=== PATIENT | male | born 1995 | race Caucasian/White ===

== ENCOUNTER 2018-08-24 13:52 | Emergency (ER) | payer BC ==
[2018-08-24] MEDS: Sodium Chloride 0.9% 1,000 ML IV ONE (14:24)
[2018-08-24 14:57] LABS: ANION GAP 15.6 mmol/L (5-15); CHLORIDE,CL 103 mmol/L (98-115); SODIUM,NA 139 mmol/L (136-145)
--- NOTE | 2018-08-24 15:11 | EDM.PDOC ---
ED HPI GENERAL MEDICAL PROBLEM - General Chief Complaint: General Stated Complaint: FEVER, ACHY Time Seen by Provider: 08/24/18 14:20 Source of Information: Reports: Patient History Limitations: Reports: No Limitations - History of Present Illness INITIAL COMMENTS - FREE TEXT/NARRATIVE: Patient is a 22-year-old gentleman who presents to the emergency department this afternoon with a complaint of fever and body aches. Patient states that this morning he felt fine, however at work felt feverish, had some body aches and while at the standing position, felt like he was lightheaded. Episode resolved spontaneously, but patient felt weak after. He reported to the [employer] nurse who sent him home. While he was home, he had one episode of diarrhea, and also felt lightheaded upon standing. Patient denies chest pain, shortness of breath, abdominal pain, nausea, vomiting, blood in stool, out of country travel, or any sick contacts. Onset: Today Duration: Hour(s): Quality: Reports: Ache Severity: Mild Improves with: Reports: None Worsens with: Reports: None Associated Symptoms: Reports: Cough, Malaise. Denies: Chest Pain, Fever/Chills , Shortness of Breath body aches Pain Score (Numeric/FACES): 5 - Related Data Allergies Allergy/AdvReac Type Severity Reaction Status Date / Time No Known Drug Allergies Allergy Cannot Verified 08/24/18 14:23 Remember Home Meds: Home Meds Budesonide [Rhinocort Allergy] 1 spray NASBOTH DAILY PRN 08/30/16 [History] Cetirizine HCl [Zyrtec] 10 mg PO BEDTIME 08/30/16 [History] Escitalopram [Lexapro] 20 mg PO DAILY 08/30/16 [History] Past Medical History - Past Health History Medical/Surgical History: Denies Medical/Surgical History HEENT History: Reports: Impaired Vision, Other (See Below) Other HEENT History: deviated septum Cardiovascular History: Reports: Other (See Below) Other Cardiovascular History: sleep apnea Respiratory History: Reports: Asthma, Sleep Apnea Gastrointestinal History: Reports: Cholelithiasis Psychiatric History: Reports: Depression Social & Family History - Family History Cardiac: Reports: Hypertension - Caffeine Use Caffeine Use: Reports: Soda - Living Situation & Occupation Living situation: Reports: Occupation: Employed ED ROS GENERAL - Review of Systems Review Of Systems: ROS reveals no pertinent complaints other than HPI. Constitutional: Reports: Malaise HEENT: Reports: No Symptoms Respiratory: Reports: Cough Cardiovascular: Reports: No Symptoms Endocrine: Reports: No Symptoms GI/Abdominal: Reports: Diarrhea. Denies: Abdominal Pain, Black Stool, Bloody Stool : Reports: No Symptoms Musculoskeletal: Reports: No Symptoms Skin: Reports: No Symptoms Neurological: Reports: No Symptoms Psychiatric: Reports: No Symptoms Hematologic/Lymphatic: Reports: No Symptoms Immunologic: Reports: No Symptoms ED EXAM, GENERAL - Physical Exam Exam: See Below Exam Limited By: No Limitations General Appearance: Alert, WD/WN, No Apparent Distress Eye Exam: Bilateral Eye: Normal Inspection Nose: Normal Inspection, Normal Mucosa, No Blood Throat/Mouth: Normal Inspection, Normal Oropharynx, No Airway Compromise Head: Atraumatic, Normocephalic Neck: Normal Inspection, Supple, Non-Tender Respiratory/Chest: No Respiratory Distress, Lungs Clear, Normal Breath Sounds, No Accessory Muscle Use, Chest Non-Tender Cardiovascular: Normal Peripheral Pulses, Regular Rate, Rhythm, No Murmur GI/Abdominal: Normal Bowel Sounds, Soft, Non-Tender, No Organomegaly, No Distention, No Abnormal Bruit, No Mass Back Exam: Normal Inspection. No: CVA Tenderness (L), CVA Tenderness (R) Extremities: Normal Inspection, No Pedal Edema Neurological: Alert, Oriented, CN II-XII Intact, Normal Cognition, No Motor/ Sensory Deficits Psychiatric: Normal Affect, Normal Mood Skin Exam: Warm, Dry, Intact, Normal Color, No Rash Lymphatic: No Adenopathy Course - Vital Signs Last Recorded V/S: Last Vital Signs Temp 96.7 F 08/24/18 14:03 Pulse 79 08/24/18 14:03 Resp 14 08/24/18 14:03 BP 121/63 08/24/18 14:03 Pulse Ox 97 08/24/18 14:03 - Orders/Labs/Meds Labs: Laboratory Tests 08/24/18 08/24/18 Range/Units 14:15 14:15 WBC 9.93 (5.00-10.00) 10^3/uL RBC 4.99 (4.50-6.00) 10^6/uL Hgb 14.5 (13.0-17.0) g/dL Hct 42.4 (40.0-52.0) % MCV 85.0 (82.0-92.0) fL MCH 29.1 (27.0-31.0) pg MCHC 34.2 (32.0-36.0) g/dL RDW 13.6 (11.5-14.5) % Plt Count 197 (150-400) 10^3/uL MPV 9.0 (7.4-10.4) fL Immature Gran % (Auto) 0.0 (0.0-5.0) % Neut % (Auto) 86.6 H (50.0-70.0) % Lymph % (Auto) 6.6 L (20.0-40.0) % Fallon % (Auto) 5.9 (2.0-8.0) % Eos % (Auto) 0.8 L (1.0-3.0) % Baso % (Auto) 0.1 (0.0-1.0) % Immature Gran # (Auto) 0.00 (0.00-0.50) 10^3/uL Neut # (Auto) 8.59 H (2.50-7.00) 10^3/uL Lymph # (Auto) 0.66 L (1.00-4.00) 10^3/uL Fallon # (Auto) 0.59 (0.10-0.80) 10^3/uL Eos # (Auto) 0.08 L (0.10-0.30) 10^3/uL Baso # (Auto) 0.01 (0.00-0.10) 10^3/uL Sodium 139 (136-145) mmol/L Potassium 4.0 (3.3-5.3) mmol/L Chloride 103 (98-115) mmol/L Carbon Dioxide 24.4 (21.0-32.0) mmol/L Anion Gap 15.6 H (5-15) mmol/L BUN 20 (6-25) mg/dL Creatinine 0.92 (0.51-1.17) mg/dL Est Cr Clr Drug Dosing 139.92 mL/min Estimated GFR (MDRD) > 60 mL/min Glucose 109 H (75 - 99) mg/dL Calcium 8.8 (8.7-10.3) mg/dL Total Bilirubin 0.4 (0.2-1.0) mg/dL AST 19 (15-37) U/L ALT 45 (12-78) U/L Alkaline Phosphatase 74 (46-116) IU/L Total Protein 7.7 (6.4-8.2) g/dL Albumin 4.21 (3.00-4.80) g/dL Meds: Medications Discontinued Medications Generic Name Dose Route Start Last Admin Trade Name Kilo PRN Reason Stop Dose Admin Sodium Chloride 1,000 mls @ 999 mls/hr 08/24/18 14:07 08/24/18 14:24 Normal Saline IV 08/24/18 15:07 999 mls/hr .BOLUS ONE Administration - Re-Assessments/Exams Free Text/Narrative Re-Assessment/Exam: 08/24/18 15:30 Patient afebrile, vital signs stable, patient feels better and denies nausea, vomiting, or abdominal pain. Influenza negative 1 L of normal saline given. 08/24/18 15:33 Departure - Departure Time of Disposition: 15:32 Disposition: Home, Self-Care 01 Condition: Good Clinical Impression: Dizziness Diarrhea Qualifiers: Diarrhea type: unspecified type Qualified Code(s): R19.7 - Diarrhea, unspecified - Discharge Information Instructions: Diarrhea, Adult, [id number], Dizziness Referrals: Odalys Villavicencio, VETERINARY ANATOMIST [Primary Care Provider] - Forms: ED Department Discharge Additional Instructions: Follow-up with PCP in one to 2 days. Return to emergency department sooner if symptoms continue or worsen. - Assessment/Plan Assessment:: Diarrhea Plan: Follow-up with PCP
[2018-08-24 15:19] VITALS: BP 143/63
== END 2018-08-24 15:48 | disposition home or self-care (01) ==
LOC: KA.ED 13:52
DX: R19.7 Diarrhea, unspecified (principal); R42 Dizziness and giddiness; J45.909 Unspecified asthma, uncomplicated; Z79.899 Other long term (current) drug therapy
CPT/HCPCS: 36415; 80053; 85025; 87804; 96360; 99283; J7030

== ENCOUNTER 2021-06-20 18:25 | Emergency (ER) | payer BC ==
[2021-06-20 18:43] VITALS: BP 131/81; PULSE 83
--- NOTE | 2021-06-20 19:38 | EDM.PDOC ---
ED HPI GENERAL MEDICAL PROBLEM - General Chief Complaint: General Stated Complaint: RIGHT ANKLE/FOOT INJURY Time Seen by Provider: 06/20/21 18:30 Source of Information: Reports: Patient, Family () History Limitations: Reports: No Limitations - History of Present Illness INITIAL COMMENTS - FREE TEXT/NARRATIVE: 25-year-old male presents emergency room with complaints of pain over his right lateral foot. Patient reports he rolled his foot and ankle on a step at home. He had a previous ankle fracture injury with plate and screws and syndesmotic screw placement over a year ago for an ankle fracture. He notes his pain is mainly over the lateral foot. He denies any pain at the ankle no significant swelling. He is able to weight-bear with some discomfort. Denies any numbness or tingling complaints. No significant swelling in the foot. No other concerns. Onset: Today Duration: Hour(s):, Intermittent Location: Reports: Lower Extremity, Right Quality: Reports: Ache Improves with: Reports: Other (Weightbearing) Worsens with: Reports: Rest Context: Reports: Trauma (Rolled his foot and ankle on a step at home) Associated Symptoms: Reports: No Other Symptoms Right Feet Pain Score (Numeric/FACES): 4 - Related Data Allergies Allergy/AdvReac Type Severity Reaction Status Date / Time No Known Drug Allergies Allergy Cannot Verified 06/20/21 19:25 Remember Home Meds: Home Meds Cetirizine HCl [Zyrtec] 10 mg PO BEDTIME 08/30/16 [History] Escitalopram [Lexapro] 20 mg PO DAILY 08/30/16 [History] Albuterol Sulfate [Albuterol Sulfate HFA] 2 puff INH DAILY PRN 03/27/21 [History] Past Medical History - Past Health History Medical/Surgical History: Denies Medical/Surgical History HEENT History: Reports: Impaired Vision, Other (See Below) Other HEENT History: deviated septum Cardiovascular History: Reports: Other (See Below) Other Cardiovascular History: sleep apnea Respiratory History: Reports: Asthma, Sleep Apnea Gastrointestinal History: Reports: Cholelithiasis Psychiatric History: Reports: Depression Endocrine/Metabolic History: Reports: Obesity/BMI 30+ - Infectious Disease History Infectious Disease History: Reports: Novel Coronavirus Social & Family History - Family History Family Medical History: No Pertinent Family History Cardiac: Reports: Hypertension - Tobacco Use Tobacco Use Status *Q: Current Every Day Tobacco User Years of Tobacco use: 6 Packs/Tins Daily: 0.1 - Caffeine Use Caffeine Use: Reports: Coffee, Soda - Recreational Drug Use Recreational Drug Use: No - Living Situation & Occupation Living situation: Reports: Occupation: Employed ED ROS GENERAL - Review of Systems Review Of Systems: Comprehensive ROS is negative, except as noted in HPI. ED EXAM, GENERAL - Physical Exam Exam: See Below Exam Limited By: No Limitations General Appearance: Alert, WD/WN, No Apparent Distress Ears: Hearing Grossly Normal Throat/Mouth: Normal Voice Head: Atraumatic Respiratory/Chest: No Respiratory Distress Cardiovascular: Normal Peripheral Pulses Peripheral Pulses: 2+: Posterior Tibial (R), Dorsalis Pedis (R) Extremities: Normal Inspection, Normal Range of Motion, No Pedal Edema, Other (Mild tenderness near the base of the fifth metatarsal and fourth metatarsal. Mild discomfort with translation of the metatarsals. Heel compression is negative. Full ankle range of motion. No tenderness over the lateral or medial malleolus. No medial or lateral ankle gutter tenderness. Well-hea). No: Joint Swelling Neurological: Alert, Oriented, No Motor/Sensory Deficits Psychiatric: Normal Affect, Normal Mood Skin Exam: Warm, Dry, Intact, Normal Color, No Rash Lymphatic: No Adenopathy Course - Vital Signs Last Recorded V/S: Last Vital Signs Temp 97.5 F 06/20/21 18:35 Pulse 83 06/20/21 18:35 Resp 18 06/20/21 18:35 BP 131/81 06/20/21 18:35 Pulse Ox 97 06/20/21 18:35 - Orders/Labs/Meds Orders: Active Orders 24 hr Category Date Time Status Ankle Min 3V Rt [CR] Stat Exams 06/20/21 18:38 Ordered Foot Comp Min 3V Rt [CR] Stat Exams 06/20/21 18:39 Ordered - Radiology Interpretation Free Text/Narrative:: X-rays 3 views right foot Indication: Rolled foot and ankle Comparison: None Discussion: No fracture, dislocation or other acute osseous abnormality Impression: No acute osseous abnormalities X-rays 3 views right ankle Indication: Rolled foot and ankle Discussion impression: Postsurgical changes following internal fixation right distal fibula and tibia. 2 syndesmotic cannulated screws or fracture at the proximal aspect. The ankle mortise is maintained. No acute fracture dislocation. Right small ankle joint effusion - Re-Assessments/Exams Free Text/Narrative Re-Assessment/Exam: 06/20/21 19:46 Reviewed x-rays with patient. Patient feels he can weight-bear as tolerated in a regular shoe at this time. We have discussed follow-up and repeat x-rays if his symptoms are not improving. I would recommend follow-up with a credit review analyst Dr. Elijah Stevens if his symptoms persist or worsen over the next 7 to 10 days. Departure - Departure Time of Disposition: 19:40 Disposition: Home, Self-Care 01 Condition: Good Clinical Impression: Sprain of right foot Qualifiers: Encounter type: initial encounter Qualified Code(s): S93.601A - Unspecified sprain of right foot, initial encounter - Discharge Information Instructions: Foot Sprain Referrals: Etelvina Bhagat MD [Primary Care Provider] - Forms: ED Department Discharge Care Plan Goals: 1. Weight-bear as tolerated 2. Ibuprofen 800 mg 3 times daily with food for any pain or discomfort and swelling. 3. Ice and elevation as needed. 4. Symptoms should gradually be improving over the next 7 to 10 days. If you feel your symptoms are not improving would repeat your x-ray in 7 to 10 days. 5. If continued pain and discomfort follow-up appointment with Dr. Stevens podiatry in [facility]. Sepsis Event Note (ED) - Evaluation Sepsis Screening Result: No Definite Risk - Focused Exam Vital Signs: Vital Signs Temp Pulse Resp BP Pulse Ox 06/20/21 18:35 97.5 F 83 18 131/81 97 - My Orders Last 24 Hours: My Active Orders 06/20/21 18:38 Ankle Min 3V Rt [CR] Stat 06/20/21 18:39 Foot Comp Min 3V Rt [CR] Stat - Assessment/Plan Last 24 Hours: My Active Orders 06/20/21 18:38 Ankle Min 3V Rt [CR] Stat 06/20/21 18:39 Foot Comp Min 3V Rt [CR] Stat Assessment:: Foot sprain, right History of right ankle ORIF with syndesmotic screw placement. Previous x-rays show broken syndesmotic screws. No change in x-rays of the right ankle Plan: 1. Weight-bear as tolerated 2. Ibuprofen 800 mg 3 times daily with food for any pain or discomfort and swelling. 3. Ice and elevation as needed. 4. Symptoms should gradually be improving over the next 7 to 10 days. If you feel your symptoms are not improving would repeat your x-ray in 7 to 10 days. 5. If continued pain and discomfort follow-up appointment with Dr. Rodney stockton in [facility].
== END 2021-06-20 19:35 | disposition home or self-care (01) ==
LOC: KA.ED 18:25
DX: S93.601A Unspecified sprain of right foot, initial encounter (principal); E66.9 Obesity, unspecified; Z68.32 Body mass index [BMI] 32.0-32.9, adult; Z86.16 Personal history of COVID-19; Z72.0 Tobacco use; X50.1XXA Overexertion from prolonged static or awkward postures, initial encounter; Y92.009 Unspecified place in unspecified non-institutional (private) residence as the place of occurrence of the external cause
CPT/HCPCS: 73610-RT; 73630-RT; 99283; 99283-25

== ENCOUNTER 2021-11-27 20:37 | Emergency (ER) | payer BC ==
[2021-11-27 20:50] VITALS: BP 133/86; PULSE 98
[2021-11-27] MEDS: Acetaminophen 500 MG Tab ONE (21:19)
== END 2021-11-27 22:00 | disposition home or self-care (01) ==
LOC: KA.ED 20:37
DX: J06.9 Acute upper respiratory infection, unspecified (principal); K08.89 Other specified disorders of teeth and supporting structures; J45.909 Unspecified asthma, uncomplicated; F17.210 Nicotine dependence, cigarettes, uncomplicated; E66.9 Obesity, unspecified; Z68.31 Body mass index [BMI] 31.0-31.9, adult; Z79.899 Other long term (current) drug therapy; Z86.16 Personal history of COVID-19
CPT/HCPCS: 36415; 85025; 99283; A9270

== ENCOUNTER 2023-02-26 20:38 | Emergency (ER) | payer BC ==
[2023-02-26 20:43] VITALS: BP 121/90; PULSE 91
[2023-02-26] MEDS ORDERED: Ketorolac 30 MG/ML SDV IM ONE (21:07)
[2023-02-26] MEDS ORDERED: Acetaminophen/HYDROcodone 325-5 MG Tab PO PRN (21:28)
== END 2023-02-26 21:40 | disposition home or self-care (01) ==
LOC: KA.ED 20:38
DX: M25.511 Pain in right shoulder (principal); F17.210 Nicotine dependence, cigarettes, uncomplicated; E66.9 Obesity, unspecified; Z68.32 Body mass index [BMI] 32.0-32.9, adult; Z86.16 Personal history of COVID-19
CPT/HCPCS: 73030-RT; 96372; 99283; A9270-GY; J1885

== ENCOUNTER 2024-06-22 18:45 | Emergency (ER) | payer BC ==
[2024-06-22 19:30] LABS: BASOPHILS ABSOLUTE AUTO 0.01 10^3/uL (0.00-0.10); BASOPHILS PERCENT AUTO 0.1 % (0.0-1.0); EOSINOPHILS PERCENT AUTO 2.6 % (1.0-3.0); HEMATOCRIT 38.4 % (40.0-52.0); HEMOGLOBIN 13.1 g/dL (13.0-17.0); IMMATURE GRAN ABSOLUTE AUTO 0.01 10^3/uL (0.00-0.50); IMMATURE GRAN PERCENT AUTO 0.1 % (0.0-5.0); LYMPHOCYTES ABSOLUTE AUTO 2.26 10^3/uL (1.00-4.00); LYMPHOCYTES PERCENT AUTO 29.1 % (20.0-40.0); MEAN CORPUSCULAR HGB CONC 34.1 g/dL (32.0-36.0); MEAN PLATELET VOLUME 9.1 fL (7.4-10.4); MONOCYTES ABSOLUTE AUTO 0.49 10^3/uL (0.10-0.80); MONOCYTES PERCENT AUTO 6.3 % (2.0-8.0); NEUTROPHILS PERCENT AUTO 61.8 % (50.0-70.0); PLATELET COUNT,PLT 227 10^3/uL (150-400); RED BLOOD CELL COUNT 4.52 10^6/uL (4.50-6.00); RED CELL DISTRIBUTION WIDTH 13.4 % (11.5-14.5); WHITE BLOOD CELL COUNT,WBC 7.77 10^3/uL (5.00-10.00)
[2024-06-22] MEDS: Albuterol 0.083% 2.5 MG/3 ML Neb Soln NEB ONE (19:36)
[2024-06-22 19:47] LABS: ANION GAP 13.4 mmol/L (5-15); BLOOD UREA NITROGEN,BUN 18 mg/dL (7-18); CALCIUM 8.4 mg/dL (8.7-10.3); CARBON DIOXIDE,CO2 27.3 mmol/L (21.0-32.0); CHLORIDE,CL 102 mmol/L (98-107); CREATININE 1.01 mg/dL (0.51-1.17); EST CRCL DRUG DOSING (CG) 120.86 mL/min; GLUCOSE RANDOM 130 mg/dL (70-140); POTASSIUM,K 3.7 mmol/L (3.5-5.1); SODIUM,NA 139 mmol/L (136-145)
[2024-06-22 19:48] LABS: ESTIMATED GFR 103 mL/min (>=60)
[2024-06-22] MEDS: predniSONE 20 MG Tab PO ONE (20:02)
[2024-06-22 20:08] VITALS: BP 129/74; PULSE 70
== END 2024-06-22 20:14 | disposition home or self-care (01) ==
LOC: KA.ED 18:45
DX: J06.9 Acute upper respiratory infection, unspecified (principal); B97.89 Other viral agents as the cause of diseases classified elsewhere; J45.909 Unspecified asthma, uncomplicated; E66.9 Obesity, unspecified; F17.210 Nicotine dependence, cigarettes, uncomplicated; Z79.899 Other long term (current) drug therapy; Z86.16 Personal history of COVID-19; Z68.32 Body mass index [BMI] 32.0-32.9, adult
CPT/HCPCS: 80048; 84484; 85025; 99285; J7512; J7613-GY

== ENCOUNTER 2025-05-07 12:30 | Emergency (ER) | payer BC ==
[2025-05-07] MEDS: Sodium Chloride 0.9% 10 ML Syringe FLUSH PRN (13:32)
[2025-05-07] MEDS: methylPREDNISolone Sodium Succinate 125 MG/2 ML SDV IVPUSH ONE (15:24)
[2025-05-07 20:28] VITALS: BP 137/69; PULSE 87
== END 2025-05-07 17:05 ==
LOC: KA.ED 12:32
DX: M54.50 Low back pain, unspecified (principal); E66.9 Obesity, unspecified; J45.909 Unspecified asthma, uncomplicated; Z87.891 Personal history of nicotine dependence; Z79.899 Other long term (current) drug therapy; Z68.34 Body mass index [BMI] 34.0-34.9, adult
CPT/HCPCS: 96374; 96375; 96376; 99285; J1171; J2919